=== PATIENT | female | born 1965 | race African-American/Black ===

== ENCOUNTER 2023-07-02 05:19 | Day surgery (SDC) | payer OTHER ==
[2023-06-17 09:22] LABS: INR 0.98; PARTIAL THROMBOPLASTIN TIME 26.2 SECONDS (22.0-34.0); PROTHROMBIN TIME 10.3 SECONDS (9.0-11.5)
[2023-06-17 09:25] LABS: ALBUMIN 4.1 gm/dL (3.4-5.0); CALCIUM 9.5 mg/dL (8.5-10.1); CREATININE SERUM 0.91 mg/dL (0.55-1.02); GFR 63.06; PHOSPHOROUS 3.1 mg/dL (2.5-4.9); POTASSIUM 4.25 mEq/L (3.5-5.1)
[2023-06-17 10:02] LABS: PH,URINE 5.5 (5.0-8.0); URINE APPEARANCE Clear; URINE BILIRRUBIN Negative (NEGATIVE); URINE BLOOD Trace; URINE COLOR Yellow; URINE GLUCOSE Negative (NEGATIVE); URINE LEUKOCYTE Negative; URINE NITRATE Negative; URINE PROTEIN Negative (NEGATIVE); URINE UROBILINOGEN 0.2 E.U./dl
[2023-06-17 10:06] LABS: URINE RBC 2.4 uL (0.0-20.8)
[2023-06-17 10:18] LABS: URINE BACTERIA 2.5 uL (0.0-1933); URINE EPITHELIAL CELLS 0.1 uL (0.0-38.8)
[2023-06-17 10:19] LABS: HEMATOCRIT 42.3 % (36.0-45.00); HEMOGLOBIN 14.2 g/dL (12.0-15.00); MEAN CELL VOLUME 85.6 fL (80.00-100.00); MEAN CORPUSCULAR HEMOGLOBIN 28.7 pg (27.00-32.0); MEAN CORPUSCULAR HGB CONC 33.5 g/dl (32.0-36.0); PLATELET COUNT 216 K/uL (150-450); RED BLOOD COUNT 4.94 M/uL (4.00-6.00)
[~2023-07-02 05:19] MED LIST: FOLIC ACID1 MG PO; LIPITOR20 MG PO; LOSARTAN POTASS50 MG PO; NEURONTIN800 MG PO; TENORMIN25 MG PO; TOPAMAX25 MG PO
[2023-07-02] MEDS ORDERED: CEFAZOLIN SODIUM 1,000 MG VIAL ONE (06:34)
[2023-07-02] MEDS ORDERED: EPINEPHRINE HCL/PF 1 MG/ML AMPUL ONE (07:03)
[2023-07-02] MEDS ORDERED: POVIDONE-IODINE 118 ML BOTT TOP ONE ×3 (07:03→08:45)
[2023-07-02] MEDS ORDERED: BACITRACIN 28.35 GM OINT.TUBE TOP ONE ×2 (07:04→08:45)
[2023-07-02] MEDS ORDERED: LIDOCAINE HCL/EPINEPHRINE 20 ML VIAL IJ ONE ×2 (07:08→08:45)
[2023-07-02] MEDS ORDERED: POVIDONE-IODINE SCRUB 118 ML BOTT TOP ONE (08:00)
[2023-07-02] MEDS ORDERED: EPINEPHRINE HCL/PF 1 MG/ML AMPUL IR ONE (08:45)
[2023-07-02] MEDS ORDERED: CEFAZOLIN SODIUM 1,000 MG VIAL IV ONE (08:45)
[2023-07-02] MEDS ORDERED: DEXAMETHASONE SODIUM PHOSPHATE 4 MG/ML VIAL ONE (08:52)
[2023-07-02] MEDS ORDERED: DEXAMETHASONE SODIUM PHOSPHATE 4 MG/ML VIAL IV ONE (09:00)
[2023-07-02] MEDS ORDERED: CIPROFLOXACIN HCL 0.175 MG/DR DROPS OTIC ONE (09:00)
[2023-07-02] MEDS ORDERED: CEPHALEXIN500 M1 PO (09:56)
[2023-07-02] MEDS ORDERED: CIPROFLOXACIN2.5 ML OTIC (09:56)
== END 2023-07-02 12:35 | disposition home or self-care (01) ==
LOC: CIR.AMB 05:19
PROVIDERS: ATTEND Otolaryngology Otology & Neurotology
DX: H71.21 Cholesteatoma of mastoid, right ear (principal); H72.01 Central perforation of tympanic membrane, right ear; I10 Essential (primary) hypertension; Z20.822 Contact with and (suspected) exposure to COVID-19